=== PATIENT | male | born 1980 | race African-American/Black ===

== ENCOUNTER 2022-06-16 23:05 | Emergency (ER) | payer SELFPAY ==
[~2022-06-16] VITALS: Ht 180.3 cm; Wt 68.0 kg
[~2022-06-16 23:05] MED LIST: SILV20CR13
[2022-06-17] MEDS: KETOROLAC 15MG/ML VIAL IV ONE (00:38)
[2022-06-17] MEDS: ONDANSETRON HCL 4MG/2ML INJ IV STA (00:38)
[2022-06-17] MEDS: SODIUM CHLORIDE 0.9% 1,000 ML IV ONE (00:38)
[2022-06-17 00:39] VITALS: BP 127/74
[2022-06-17] MEDS: MORPHINE SULFATE 4 MG/ML CPJ (NOT FOR IM USE) IV STA (00:39)
[2022-06-17 01:40] LABS: BASOPHILS % 0.4 % (0.0-2.0); EOSINOPHILS % 0.4 % (0.0-5.0); HEMATOCRIT. 40.8 % (42.0-52.0); HEMOGLOBIN. 13.5 g/dL (14.0-18.0); LYMPHOCYTES % 8.8 % (20.0-50.0); MEAN CORPUSCULAR HEMOGLOBIN 30.1 pg (28.0-32.0); MEAN CORPUSCULAR VOLUME 90.7 fL (80.0-94.0); MONOCYTES % 4.7 % (2.0-8.0); NEUTROPHILS % 85.7 % (40.0-76.0); PLATELET 371 x1000/uL (130-400); RED CELL DISTRIBUTION WIDTH 13.8 % (11.6-14.6)
[2022-06-17 01:51] LABS: CHLORIDE 107 mEq/L (98-107)
[2022-06-17 01:59] LABS: CREATINE KINASE 114 IU/L (39-308)
[2022-06-17 02:08] LABS: CLARITY URINE TURBID (CLEAR); COLOR URINE RED (YELLOW); KETONES URINE NEGATIVE (NEGATIVE); LEUKOCYTE ESTERASE URINE 1+ (NEGATIVE); NITRITE URINE NEGATIVE (NEGATIVE); OCCULT BLOOD URINE 3+ (NEGATIVE); PROTEIN URINE 1+ (NEGATIVE); SPECIFIC GRAVITY URINE 1.017 (1.005-1.030)
[2022-06-17 03:14] LABS: *AMPHETAMINES SCREEN URINE NEGATIVE (NEGATIVE); *BARBITURATES SCREEN URINE NEGATIVE (NEGATIVE); *BENZODIAZEPINES SCREEN URINE NEGATIVE (NEGATIVE); *COCAINE SCREEN URINE NEGATIVE (NEGATIVE); CANNABINOID URINE SCREEN PRESUMTIVE POSITIVE (NEGATIVE); METHADONE URINE SCREEN NEGATIVE (NEGATIVE); OPIATES URINE SCREEN PRESUMTIVE POSITIVE (NEGATIVE); PHENCYCLIDINE URINE SCREEN NEGATIVE (NEGATIVE)
[2022-06-17] MEDS ORDERED: CIPR500T5 MT (03:20)
[2022-06-17] MEDS ORDERED: IBUP-2028 MT (03:20)
[2022-06-17] MEDS ORDERED: TAMS-11 MT (03:20)
[2022-06-17] MEDS ORDERED: HYDR-4001 MT (03:20)
== END 2022-06-17 04:12 | disposition home or self-care (01) ==
LOC: ER 23:05
DX: N39.0 Urinary tract infection, site not specified (principal); N23 Unspecified renal colic; F12.10 Cannabis abuse, uncomplicated
CPT/HCPCS: 36415; 74176; 80053; 80305; 81003; 82550; 83690; 85025; 96374; 96375; 99284; J1885; J2270; J2405